=== PATIENT | female | born 1945 | race Caucasian/White ===

== ENCOUNTER 2016-10-01 06:08 | Observation (INO) | payer OTHER ==
[2016-10-01] MEDS ORDERED: DILTIAZEM HCL 25 MG/ 5ML VIAL ONE (06:35)
[2016-10-01] MEDS ORDERED: 0.9 % SODIUM CHLORIDE 1,000 ML IV ONE (06:38)
[2016-10-01] MEDS ORDERED: DILTIAZEM HCL 125 MG/25ML VIAL ONE (06:50)
[2016-10-01] MEDS ORDERED: 0.9 % SODIUM CHLORIDE 100 ML IV ONE (06:50)
[2016-10-01] MEDS ORDERED: DILTIAZEM HCL 25 MG/ 5ML VIAL IVP ONE (06:52)
[2016-10-01] MEDS ORDERED: DILTIAZEM HCL 125 MG in 0.9 % SODIUM CHLORIDE 100 ML IV STA ×2 (06:52→09:40)
[2016-10-01] MEDS ORDERED: 0.9 % SODIUM CHLORIDE 1,000 ML IV SCH ×2 (07:00)
[2016-10-01 07:22] LABS: BASOPHILS % 0.3 (0.0-1.5); EOSINOPHILS % 4.8 % (0.0-6.8); LYMPHOCYTES # 0.7 # k/uL (0.6-4.0); MEAN CORPUSCULAR HEMOGLOBIN 29.2 pg (28.0-34.0); MONOCYTES # 0.4 # k/uL (0.0-0.9); NEUTROPHILS # 3.1 # k/uL (1.4-7.7)
[2016-10-01 07:39] LABS: eGFR (African) > 60; eGFR (Non-African) > 60
--- NOTE | 2016-10-01 07:58 | Diagnostic Imaging Report ---
[facility] [address] [facility] [address] 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 Physician: JC LEDESMA Chest, AP portable History: Supra ventricular tachycardia Findings: There is no pleural effusion or pneumothorax. There is mild pulmonary vascular congestion. The heart is enlarged. Since 12 August 2016, little change has occurred. Impression: Cardiomegaly and pulmonary vascular congestion. Electronically signed on Oct 01, 2016 7:28:32 AM WEIGHT TRAINING INSTRUCTOR by: Mauricio DRUMMOND
--- NOTE | 2016-10-01 08:47 | ED Physician Documentation ---
General Adult - HISTORIAN Historian: patient - HPI Stated Complaint: Rapid HR Chief Complaint: General Adult Additional Information: pt. has been having rapid heart rate, chest pressure and soa since last night Onset: hours (10) Timing: still present Severity: moderate Modifying Factors: extra metoprolol not working Context: spontaneous Quality: like previous times Location: mid chest Further Comments: no Last known Well Date: 09/30/16 Last Known Well Time: 21:00 Last known Well Code/Unknown Code: Unknown - ROS CONST: weakness EYES/ENT: none CVS/RESP: chest pain (pressure), shortness of breath GI/: none MS/SKIN/LYMPH: none NEURO/PSYCH: dizziness - PAST HX Past History: hypertension, other (gerd, low back pain, anxiety) Other History: other (SVT) Surgeries/Procedures: cholecystectomy, other (low back surgery, hernia repair) Allergies/Adverse Reactions: Allergies Allergy/AdvReac Type Severity Reaction Status Date / Time acetaminophen [From [place]] Allergy Verified 10/01/16 07:30 hydrocodone bitartrate Allergy Verified 10/01/16 07:30 [From [place]] Home Medications: Ambulatory Orders Medication Instructions Recorded Aspirin [Brenda] 81 mg PO QD 09/14/12 Melatonin 5 mg PO HS PRN 10/01/16 Zolpidem Tartrate [Edluar] 5 mg PO PRN PRN 10/01/16 - SOCIAL HX Smoking History: non-smoker Alcohol Use: none Drug Use: none - FAMILY HX Family History: No - VITAL SIGNS Vital Signs: Vital Signs Temp Pulse Resp BP Pulse Ox 97.8 F 166 H 20 104/72 95 10/01/16 06:15 10/01/16 06:15 10/01/16 06:15 10/01/16 06:15 10/01/16 06:15 - REVIEWED ASSESSMENTS Nursing Assessment Reviewed: Yes Vitals Reviewed: Yes Progress - Results/Orders Results/Orders: cbc, cmp, pt/ptt/inr, trop, bnp, ekg, cxr ordered - Progress Progress: converted to sinus rhythm rate of 70 with 20 mg Cardizem bolus followed by drip at 5 mg/hr Critical Care Note - Critical Care Note Total Time (mins): 30 Comments: Pt. unstable on presentation with hypotension and tachycardic rate of 170, Pt. stabilzed with IV, Cardizem bolus and drip. ED Results Lab/Radiology - Lab Results Lab Results: Lab Results 10/01/16 10/01/16 10/01/16 07:00 07:00 07:00 WBC RBC Hgb Hct MCV MCH MCHC RDW Plt Count Neut % (Auto) Lymph % (Auto) Armstrong % (Auto) Eos % (Auto) Baso % (Auto) Neut # Lymph # Armstrong # Eos # Baso # Reactive Lymphs % Reactive Lymphs # PT 10.2 Seconds Seconds (9.7-11.5) INR 1.0 (0.9-1.1) APTT 25.0 Seconds Seconds (24.5-32.8) Sodium 141 mmol/L mmol/L (136-145) Potassium 4.3 mmol/L mmol/L (3.5-5.0) Chloride 101 mmol/L mmol/L (98-110) Carbon Dioxide 26 mmol/L mmol/L (20-32) BUN 24 mg/dL mg/dL (10-26) Creatinine 1.1 mg/dL mg/dL (0.4-1.5) Estimated Creat Clear 86 Est GFR ( Amer) > 60 (60 - ) Est GFR (Non-Af Amer) > 60 (60 - ) Glucose 148 mg/dL H mg/dL (70-99) Calcium 9.4 mg/dL mg/dL (8.5-10.5) Total Bilirubin 0.2 mg/dL mg/dL (0.2-1.2) AST 24 U/L U/L (0-41) ALT 13 U/L U/L (0-45) Alkaline Phosphatase 68 U/L U/L (46-116) Troponin I < 0.03 ng/mL L ng/mL (0.03-0.06) NT-Pro-B Natriuret Pep 761.7 pg/mL H pg/mL (15.0-125.0) Total Protein 7.2 g/dL g/dL (6.0-8.5) Albumin 3.8 g/dL g/dL (3.0-5.5) 10/01/16 07:00 WBC 4.60 K/ul K/ul (4.00-12.00) RBC 4.31 M/ul M/ul (3.90-5.20) Hgb 12.6 g/dL g/dL (12.0-16.0) Hct 39.7 % % (34.5-46.5) MCV 92.1 fl fl (80.0-100.0) MCH 29.2 pg pg (28.0-34.0) MCHC 31.7 g/dL g/dL (30.0-36.0) RDW 12.7 % % (11.3-14.3) Plt Count 165 K/mm3 K/mm3 (130-400) Neut % (Auto) 67.5 % % (39.0-79.0) Lymph % (Auto) 16.3 % % (16.0-50.0) Armstrong % (Auto) 8.0 % % (0.0-11.0) Eos % (Auto) 4.8 % % (0.0-6.8) Baso % (Auto) 0.3 (0.0-1.5) Neut # 3.1 # k/uL # k/uL (1.4-7.7) Lymph # 0.7 # k/uL # k/uL (0.6-4.0) Armstrong # 0.4 # k/uL # k/uL (0.0-0.9) Eos # 0.2 # k/uL # k/uL (0.0-0.6) Baso # 0.0 # k/uL # k/uL (0.0-0.5) Reactive Lymphs % 3.0 % % (0.0-5.0) Reactive Lymphs # 0.1 # k/uL # k/uL (0.0-0.8) PT INR APTT Sodium Potassium Chloride Carbon Dioxide BUN Creatinine Estimated Creat Clear Est GFR ( Amer) Est GFR (Non-Af Amer) Glucose Calcium Total Bilirubin AST ALT Alkaline Phosphatase Troponin I NT-Pro-B Natriuret Pep Total Protein Albumin - Radiology Radiology Impressions: cxr neg - Orders Orders: ED Orders Category Date Time Status Place Saline Lock/IV Now Care 10/01/16 06:[address] Saline Lock/IV Now Care 10/01/16 07:03 Active CHEST 1 VIEW [RAD] Routine Exams 10/01/16 Completed CBC/PLATELET/DIFF Routine Lab 10/01/16 07:00 Completed CMP Routine Lab 10/01/16 07:00 Completed NT-proBNP Routine Lab 10/01/16 07:00 Completed PT-INR Routine Lab 10/01/16 07:00 Completed PTT Routine Lab 10/01/16 07:00 Completed TROPONIN I (cTnI) Routine Lab 10/01/16 07:00 Completed URINALYSIS Routine Lab 10/01/16 06:55 Ordered 0.9 % Sodium Chloride [Normal Saline] 1,000 ml Med 10/01/16 07:00 Ordered IV .Q1H 0.9 % Sodium Chloride [Normal Saline] 1,000 ml Med 10/01/16 06:38 Discontinued IV .STK-MED 0.9 % Sodium Chloride [Normal Saline] 1,000 ml Med 10/01/16 07:00 Discontinued IV Q10H 0.9 % Sodium Chloride [Sodium Chloride] 100 ml Med 10/01/16 06:50 Discontinued IV .STK-MED Diltiazem HCl [Cardizem] Med 10/01/16 06:50 Discontinued 125 mg .ROUTE .STK-MED ONE Diltiazem HCl [Cardizem] Med 10/01/16 06:52 Discontinued 20 mg IVP STAT ONE Diltiazem HCl [Cardizem] Med 10/01/16 06:35 Discontinued 25 mg .ROUTE .STK-MED ONE Diltiazem HCl [Cardizem] 125 mg Med 10/01/16 06:52 Active 0.9 % Sodium Chloride [Sodium Chloride] 100 ml IV 1T EKG WITH COMPARISON Routine Ther 10/01/16 Ordered EKG WITH COMPARISON Routine Ther 10/01/16 Ordered Transfer Routine Transfer 10/01/16 Ordered General Adult Physical Exam - PHYSICAL EXAM GENERAL APPEARANCE: moderate distress EENT: eye inspection normal, ENT inspection normal, pharynx normal, no signs of dehydration, LEV, no nystagmus, TM's nml NECK: normal inspection, thyroid normal, supple RESPIRATORY: no resp distress, chest non-tender, breath sounds normal CVS: reg rate & rhythm, tachycardia ABDOMEN: soft, no organomegaly, normal bowel sounds, no abdominal bruit, no distension, non-tender BACK: normal inspection, no CVA tenderness SKIN: warm/dry, normal color EXTREMITIES: non-tender, normal range of motion, no evidence of injury, edema ( x2 le's, mild) NEURO: oriented X3, CN's nml as tested, motor nml, sensation nml, mood/affect nml Discharge Clincal Impression: Supraventricular tachycardia Home Medications: Ambulatory Orders Aspirin [Brenda] 81 mg PO QD 09/14/12 Melatonin 5 mg PO HS PRN 10/01/16 Zolpidem Tartrate [Edluar] 5 mg PO PRN PRN 10/01/16 Comments: case discussed with Dr. Scott, pt. admitted Condition: Stable Disposition: ADMITTED INPATIENT Decision to Admit: [id number] Decision Time: 08:15
[2016-10-01] MEDS: 0.9 % SODIUM CHLORIDE 1,000 ML IV SCH ×2 (08:50→18:29)
[2016-10-01] MEDS ORDERED: ZOLPIDEM TARTRATE 5 MG TABLET PO PRN (09:40)
[2016-10-01] MEDS ORDERED: HYDROCHLOROTHIAZIDE 25 MG TABLET PO SCH (09:40)
[2016-10-01] MEDS ORDERED: LISINOPRIL 20 MG TABLET PO SCH (09:40)
[2016-10-01 10:28] VITALS: BMI 35.6
[2016-10-01] MEDS: traMADol HCL 50 MG TABLET PO PRN ×2 (12:01→20:26)
[2016-10-01] MEDS ORDERED: ASPIRIN EC 81 MG TABLET.DR ONE (13:04)
[2016-10-01] MEDS ORDERED: ENOXAPARIN SODIUM 30 MG/0.3 ML DISP.SYRIN SQ ONE (13:04)
[2016-10-01] MEDS ORDERED: DILTIAZEM HCL 180 MG CAP.ER.24H PO ONE (13:04)
[2016-10-01] MEDS ORDERED: HYDROCHLOROTHIAZIDE 25 MG TABLET PO ONE ×2 (13:04→18:00)
[2016-10-01] MEDS: ASPIRIN 81 MG CHEW TAB PO SCH (13:49)
[2016-10-01] MEDS: ENOXAPARIN SODIUM 30 MG/0.3 ML DISP.SYRIN SQ SCH (13:49)
[2016-10-01] MEDS: DILTIAZEM HCL 180 MG CAP.ER.24H PO SCH (15:10)
[2016-10-01] MEDS ORDERED: LISINOPRIL 20 MG TABLET ONE (17:55)
[2016-10-01] MEDS ORDERED: LISINOPRIL 20 MG TABLET PO ONE (18:00)
[2016-10-01] MEDS ORDERED: PANTOPRAZOLE SODIUM 40 MG TABLET ONE (19:43)
[2016-10-01] MEDS ORDERED: NAPROXEN 250 MG TABLET ONE (22:25)
[2016-10-01] MEDS ORDERED: NAPROXEN 250 MG TABLET PO PRN (22:26)
[2016-10-02 04:52] VITALS: BP 137/63
[2016-10-02] MEDS ORDERED: SALINE FLUSH 10 ML DISP.SYRIN IVF ONE (06:17)
[2016-10-02] MEDS ORDERED: PANTOPRAZOLE SODIUM 40 MG TABLET PO SCH (07:00)
--- NOTE | 2016-10-02 07:07 | Diagnostic Imaging Report ---
[facility] [address] [facility] 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 COMPARISON: Chest x-rays dated 10/01/2016 and 08/12/2016. TECHNIQUE: 2 views of the chest were performed. FINDINGS: There is improvement in the central pulmonary vascular congestion. ~ No pneumothorax or new infiltrates. ~There is a calcified granuloma in the right lung base. ~There are right hilar calcified granulomas. ~The heart is borderline enlarged. IMPRESSION: Improved central pulmonary vascular congestion. No new pulmonary infiltrates. ~ Electronically signed on Oct 02, 2016 6:52:32 AM FLEXO FOLDER GLUER OPERATOR by: Brodie DRUMMOND
[2016-10-02] MEDS: 0.9 % SODIUM CHLORIDE 1,000 ML IV SCH (07:34)
[2016-10-02] MEDS: ASPIRIN 81 MG CHEW TAB PO SCH (10:02)
[2016-10-02] MEDS: DILTIAZEM HCL 180 MG CAP.ER.24H PO SCH (10:02)
[2016-10-02] MEDS: ENOXAPARIN SODIUM 30 MG/0.3 ML DISP.SYRIN SQ SCH (10:03)
--- NOTE | 2016-11-27 09:51 | Discharge Summary ---
Discharge Summary - Discharge Sumary History of Present Illness: 71-year-old white female with a history of supraventricular tachycardia. Patient states that she woke up last night complaining of rapid heart rate. Patient was having some mild chest discomfort associated with it. Patient was subsequently seen in the ED. Patient was noted to have a heart rate of 160s to 170s. There was a narrow complex regular rhythm. Patient was felt to be an SVT again. Patient was given a bolus of Cardizem 20 mg daily. Patient did convert to normal sinus rhythm and was maintained on 5 mg Cardizem drip. Patient was subsequently admitted to the hospital for further care and evaluation. Home Medications: Ambulatory Orders Medication Instructions Recorded Aspirin [Brenda] 81 mg PO QD 09/14/12 Melatonin 5 mg PO HS PRN 10/01/16 Zolpidem Tartrate [Edluar] 5 mg PO PRN PRN 10/01/16 Diltiazem HCl [Cardizem CD] 180 mg PO DAILY #30 cap.er.24h 10/02/16 traMADol HCL [Ultram] 50 mg PO TID PRN #0 tablet 10/02/16 Allergies/Adverse Reactions: Allergies Allergy/AdvReac Type Severity Reaction Status Date / Time acetaminophen [From [place]] Allergy Verified 10/01/16 07:30 hydrocodone bitartrate Allergy Verified 10/01/16 07:30 [From [place]] Discharge Summary: Patient was continued on a Cardizem drip. Patient was then converted to by mouth Cardizem. 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 Patient still cardiac enzymes and EKGs done which were negative. Patient did not have any further episodes of tachycardia. Patient was discharged from in stable condition. - Final Diagnosis (1) Supraventricular tachycardia Problems: Patient will be continued on home medications. Patient will follow up with manager chemistry. If she has any further problems was advised to return to clinic or to the ED.
== END 2016-10-02 10:15 | disposition home or self-care (01) ==
LOC: ED 06:08 → SOUTH 08:40
PROVIDERS: ADMIT Family Medicine; ATTEND Family Medicine
DX: I47.1 Supraventricular tachycardia (principal)
CPT/HCPCS: 36415; 71010; 71020; 80053; 83880; 84484; 85025; 85610; 85730; 93005; G0378; J1650; J3490; J7030; 96365; 96367; 96375; 99283; 99284; S1016

== ENCOUNTER 2016-11-05 09:20 | Outpatient (CLI) | payer OTHER | END 2016-11-05 09:21 | LOC: CARD 09:20 | PROVIDERS: ATTEND Internal Medicine Cardiovascular Disease | DX: I47.1 Supraventricular tachycardia (principal); R00.2 Palpitations | CPT/HCPCS: G0463 ==

== ENCOUNTER 2017-01-16 15:41 | Emergency (ER) | payer OTHER ==
[~2017-01-16 15:41] MED LIST: 0.9 % SODIUM CHLORIDE 1,000 ML IV SCH
[2017-01-16] MEDS ORDERED: NORMAL SALINE 500 ML IV.SOLN IV ONE (16:07)
[2017-01-16] MEDS: DIPH,PERTUSS(ACELL),TET VAC/PF 0.5 ML DISP.SYRIN IM ONE (16:09)
--- NOTE | 2017-01-16 16:15 | ED Physician Documentation ---
Fall - HISTORIAN Historian: patient, child (daughter) - HPI Stated Complaint: fall/laceration Chief Complaint: Fall Additional Information: Unfolding a lawn chair on sloping gravel. Landed on butt, per daughter, then fell onto back and hit back of head. No LOC. Was dazed. Couldn't remember what she was doing when she fell, at first. Now recalls unfolding chair. To ER per EMS. Family would not let her get off ground at scene. Head hurts as well as mid back soreness. Left shoulder hurts a little when she moves it. Onset: just prior to arrival (at about 1500) Where: home - ROS CONST: no problems - PAST HX Past History: other (hypertension. DVT RLE 1999 - on daily asa) Allergies/Adverse Reactions: Allergies Allergy/AdvReac Type Severity Reaction Status Date / Time acetaminophen [From [place]] Allergy Verified 10/01/16 07:30 hydrocodone bitartrate Allergy Verified 10/01/16 07:30 [From [place]] Home Medications: Ambulatory Orders Medication Instructions Recorded Aspirin [Brenda] 81 mg PO QD 09/14/12 Melatonin 5 mg PO HS PRN 10/01/16 Zolpidem Tartrate [Edluar] 5 mg PO PRN PRN 10/01/16 Diltiazem HCl [Cardizem CD] 180 mg PO DAILY #30 cap.er.24h 10/02/16 traMADol HCL [Ultram] 50 mg PO TID PRN #0 tablet 10/02/16 - SOCIAL HX Smoking History: non-smoker - FAMILY HX Family History: no significant history - VITAL SIGNS Vital Signs: Vital Signs Temp Pulse Resp BP Pulse Ox 98.4 F 77 18 145/61 98 01/16/17 16:01 01/16/17 16:01 01/16/17 16:01 01/16/17 16:01 01/16/17 16:01 - REVIEWED ASSESSMENTS Nursing Assessment Reviewed: Yes Vitals Reviewed: Yes Progress - Progress Progress: CT cervical spine Date of examination: 16 Jan 2017 CLINICAL HISTORY: FALL, HEADACHE, LACERATION ON BACK OF HEAD, MEMORY LOSS. PT DOES NOT REMEMBER INCIDENT. (Hx) / FALL (DICOM Hx) TECHNIQUE: 2.5 mm contiguous axial images of the cervical spine with sagittal and coronal reconstructions. FINDINGS: The cervical spine alignment is normal. There is disc space narrowing at C5/C6. Facet osteoarthritis is present through the cervical spine. There is no fracture or lytic change. A levoscoliosis curve is present. Minimal carotid artery calcification is present in the neck. The ring of C1 and C 2 appear intact. IMPRESSION: No evidence of acute cervical spine fracture or subluxation Cervical spondylosis Electronically signed on January 16, 2017 4:30:28 PM CDT by: Darvin Bhardwaj CT brain noncontrast Date of study: 16 Jan 2017 CLINICAL HISTORY: FALL, HEADACHE, LACERATION ON BACK OF HEAD, MEMORY LOSS. PT DOES NOT REMEMBER INCIDENT. (Hx) / FALL (DICOM Hx) TECHNIQUE: 5 mm contiguous axial images of the brain, noncontrast. FINDINGS: There is no evidence of intracranial mass effect, hemorrhage, or acute hydrocephalus. The lateral ventricles are symmetrical and the 4th ventricle is midline without shift. No acute brain parenchymal changes or extra-axial fluid collections are identified. The posterior fossa contents are within normal limits. The calvarium is intact. The visualized sinuses and mastoid air cells are clear. IMPRESSION: No acute intracranial process. Electronically signed on January 16, 2017 4:31:22 PM CDT by: Darvin Bhardwaj ED Results Lab/Radiology - Orders Orders: ED Orders Category Date Time Status CT BRAIN W/O CONTRAST Stat Exams 01/16/[address] NECK WITHOUT [CT C-SPINE W/O CONTRAST] Stat Exams 01/16/17 Ordered 0.9 % Sodium Chloride [Normal Saline] Med 01/16/17 16:07 Once 1,000 ml IV 1T ONE Diph,Pertuss(Acell),Tet Vac/Pf [Adacel] Med 01/16/17 15:59 Discontinued 0.5 ml IM .ONCE ONE Fall Physical Exam - Physical Exam General Appearance: alert, moderate distress (anxious) Neck: non-tender, trachea midline Eye: LEV, EOMI, lids & conjunct. nml ENT: nml external inspection, no oral injury, airway nml Resp/CVS: chest non-tender, breath sounds nml, heart sounds nml Abdomen: soft, normal bowel sounds, other (pelvis stable, non-tender) Neuro: CN's nml as tested, sensation nml, motor nml, reflexes nml Skin: color nml Back: normal inspection, other (tender to palpation right paraspinal thoracic area) Extremities: pelvis stable, no pedal edema (left foot and ankle; right foot and ankle with non-pitting edema) Joint: joints nml - [place] Coma Score Eyes Open: Spontaneous Speech: Oriented Motor: Obeys Commands Discharge Clincal Impression: Fall Qualifiers: Encounter type: initial encounter Qualified Code(s): W19.XXXA - Unspecified fall, initial encounter Occipital scalp laceration Qualifiers: Encounter type: initial encounter Qualified Code(s): S01.01XA - Laceration without foreign body of scalp, initial encounter Referrals: Todd Scott MD [Primary Care Provider] - 2 Days Additional Instructions: Return to the ER immediately if you develop prolonged vomiting or unusual behavior. Home Medications: Ambulatory Orders Aspirin [Brenda] 81 mg PO QD 09/14/12 Melatonin 5 mg PO HS PRN 10/01/16 Zolpidem Tartrate [Edluar] 5 mg PO PRN PRN 10/01/16 Diltiazem HCl [Cardizem CD] 180 mg PO DAILY #30 cap.er.24h 10/02/16 traMADol HCL [Ultram] 50 mg PO TID PRN #0 tablet 10/02/16 Condition: Good Disposition: 01 HOME, SELF-CARE Decision to Admit: NO Decision Time: 16:45
[2017-01-16] MEDS ORDERED: ONDANSETRON HCL/PF 4 MG/ 2ML VIAL ONE (16:23)
[2017-01-16] MEDS: ONDANSETRON HCL/PF 4 MG/ 2ML VIAL IVP ONE (16:28)
[2017-01-16] MEDS: KETOROLAC TROMETHAMINE 30 MG/1ML VIAL IVP ONE (16:45)
--- NOTE | 2017-01-16 16:49 | Diagnostic Imaging Report ---
[facility] [address] [facility] [address] [place], [place]. [address] Report Submission Date: January 16, 2017 4:30:28 PM CDT Patient Study Name: YONG DUMONT Date: January 16, 2017 4:12:15 PM CDT Modality Type: CT\SR Gender: F Description: CT C-SPINE W/O CONTRAS : 45 Institution: [facility] Physician: FRANCINE MIKE - ER CT cervical spine Date of examination: 16 Jan 2017 CLINICAL HISTORY: FALL, HEADACHE, LACERATION ON BACK OF HEAD, MEMORY LOSS. PT DOES NOT REMEMBER INCIDENT. (Hx) / FALL (DICOM Hx) TECHNIQUE: 2.5 mm contiguous axial images of the cervical spine with sagittal and coronal reconstructions. FINDINGS: The cervical spine alignment is normal. There is disc space narrowing at C5/C6. Facet osteoarthritis is present through the cervical spine. There is no fracture or lytic change. A levoscoliosis curve is present. Minimal carotid artery calcification is present in the neck. The ring of C1 and C 2 appear intact. IMPRESSION: No evidence of acute cervical spine fracture or subluxation Cervical spondylosis Electronically signed on January 16, 2017 4:30:28 PM CDT by: Darvin DRUMMOND
--- NOTE | 2017-01-16 16:50 | Diagnostic Imaging Report ---
[facility] [address] [facility] [address] [place], [place]. [address] Report Submission Date: January 16, 2017 4:31:22 PM CDT Patient Study Name: YONG DUMONT Date: January 16, 2017 4:09:46 PM CDT Modality Type: CT\SR Gender: F Description: CT BRAIN W/O CONTRAST : 45 Institution: [facility] Physician: FRANCINE MIKE - ER CT brain noncontrast Date of study: 16 Jan 2017 CLINICAL HISTORY: FALL, HEADACHE, LACERATION ON BACK OF HEAD, MEMORY LOSS. PT DOES NOT REMEMBER INCIDENT. (Hx) / FALL (DICOM Hx) TECHNIQUE: 5 mm contiguous axial images of the brain, noncontrast. FINDINGS: There is no evidence of intracranial mass effect, hemorrhage, or acute hydrocephalus. The lateral ventricles are symmetrical and the 4th ventricle is midline without shift. No acute brain parenchymal changes or extra-axial fluid collections are identified. The posterior fossa contents are within normal limits. The calvarium is intact. The visualized sinuses and mastoid air cells are clear. IMPRESSION: No acute intracranial process. Electronically signed on January 16, 2017 4:31:22 PM CDT by: Darvin DRUMMOND
[2017-01-16 17:23] VITALS: BP 130/61
== END 2017-01-16 16:54 | disposition home or self-care (01) ==
LOC: ED 15:41
DX: S01.01XA Laceration without foreign body of scalp, initial encounter (principal); W19.XXXA Unspecified fall, initial encounter; Y93.9 Activity, unspecified; Y99.9 Unspecified external cause status
CPT/HCPCS: 70450; 72125; 90715; J1885; J2405; 90471; 99283

== ENCOUNTER 2017-02-10 08:51 | Outpatient (CLI) | payer OTHER | END 2017-02-10 08:52 | LOC: LAB 08:51 | PROVIDERS: ATTEND Family Medicine | DX: Z11.59 Encounter for screening for other viral diseases (principal) | CPT/HCPCS: 36415; 86803 ==

== ENCOUNTER 2017-03-18 14:03 | Outpatient (CLI) | payer OTHER | END 2017-03-18 14:04 | LOC: POD 14:03 | PROVIDERS: ATTEND Podiatrist | DX: M20.12 Hallux valgus (acquired), left foot (principal); L60.0 Ingrowing nail | CPT/HCPCS: G0463 ==

== ENCOUNTER 2017-03-21 10:30 | Outpatient (CLI) | payer OTHER ==
--- NOTE | 2017-03-21 14:27 | Diagnostic Imaging Report ---
OSMIN HOYT [facility] [address] [facility] [address] [address] Report Submission Date: Mar 21, 2017 10:58:57 AM CDT Patient Study Name: YONG DUMONT Date: Mar 21, 2017 10:37:34 AM CDT Modality Type: CR Gender: F Description: LOWER EXTREMITY : 45 Institution: [facility] Physician: OSMIN HOYT Examination: Plain film foot History: Foot numbness Findings: 3 views of the foot demonstrates normal cortical margins. Generalized osteopenia. No fracture or dislocation. Calcaneal spurs. 1st digit hallux valgus deformity. No soft tissue swelling. No joint effusion. Impression: Osteopenia, degenerative changes, and 1st digit hallux valgus deformity. Calcaneal spurs. No evidence for fracture Electronically signed on Mar 21, 2017 10:58:57 AM CDT by: Sebastian DRUMMOND
== END 2017-03-21 10:32 ==
LOC: RAD 10:30
PROVIDERS: ATTEND Podiatrist
DX: M20.12 Hallux valgus (acquired), left foot (principal); L60.0 Ingrowing nail
CPT/HCPCS: 73630

== ENCOUNTER 2017-04-15 13:25 | Outpatient (CLI) | payer OTHER | END 2017-04-15 13:35 | LOC: POD 13:25 | PROVIDERS: ATTEND Podiatrist | DX: M20.12 Hallux valgus (acquired), left foot (principal) | CPT/HCPCS: G0463 ==

== ENCOUNTER 2017-07-11 08:08 | Day surgery (SDC) | payer OTHER ==
[~2017-07-11 08:08] MED LIST changes: -0.9 % SODIUM CHLORIDE 1,000 ML IV SCH; +LACTATED RINGERS 1,000 ML IV.SOLN IV ONE; +LIDOCAINE HCL/PF 2% 100 MG/5 ML VIAL IJ ONE; +PROPOFOL 200 MG/20 ML VIAL IV ONE; +SALINE FLUSH 10 ML DISP.SYRIN IVF ONE
--- NOTE | 2017-07-11 14:28 | GI Report ---
REFERRING PHYSICIAN: Dr. Todd Scott ANIMAL NUTRITIONIST: Aldo Lin MD PROCEDURE MEDICATION: Propofol as per anesthesia. INDICATIONS: Patient is here for surveillance colonoscopy. She has had adenomatous polyps in the past. She denies any interval changes in her stools. She is on medicine for hypertension. She has had abdominal surgery with a large ventral hernia that has mesh in it, an apparent traumatic hernia, and also she has had a cholecystectomy and surgery for her back going through the abdomen. She does have central obesity. PROCEDURE PERFORMED: Colonoscopy with polypectomy. PROCEDURE: An Olympus video colonoscope was advanced into the rectum and slowly advanced to the cecum. In the ascending colon, the patient had a 3 mm flat polyp removed with a cold snare. In the transverse colon, you could kind of see an area of some scarring where the colon possibly was in the hernia and near that, the patient had a 3 mm polyp removed with a cold snare at about 70 cm. On withdrawal, there was still some bleeding from the polypectomy site, so a hemoclip was placed, which is MRI compatible. The main part of descending colon with a lot of redundancy. No additional lesions noted. Retroflexion of the rectum was normal. Patient tolerated the procedure well. FINDINGS: Two polyps removed, 1 in the ascending colon and 1 in the transverse colon. Because of persistent bleeding, a hemoclip was placed on the one in the transverse colon. RECOMMENDATIONS: 1. Pending the pathology of the polyp, she needs her colon re-looked again within 5 years 2. senior living, would increase fiber in the diet. 3. Follow up with Dr. Scott. cc: Dr. Todd DRUMMOND
== END 2017-07-11 08:09 ==
LOC: OPSURG 08:08
PROVIDERS: ATTEND Internal Medicine Gastroenterology
DX: Z12.11 Encounter for screening for malignant neoplasm of colon (principal); D12.2 Benign neoplasm of ascending colon; D12.3 Benign neoplasm of transverse colon
CPT/HCPCS: 88305; J2001; J2704; J7120; 45385; S1016

== ENCOUNTER 2017-11-30 10:55 | Outpatient (CLI) | payer OTHER ==
[2017-11-30 11:48] LABS: eGFR (African) > 60; eGFR (Non-African) > 60
== END 2017-11-30 10:56 ==
LOC: RAD 10:55
PROVIDERS: ATTEND Family Medicine
DX: I10 Essential (primary) hypertension (principal); M81.0 Age-related osteoporosis without current pathological fracture
CPT/HCPCS: 36415; 77080; 80053; 80061

== ENCOUNTER 2019-01-15 13:37 | Emergency (ER) | payer OTHER ==
[2019-01-15] MEDS ORDERED: ASPIRIN 81 MG CHEW TAB PO ONE (13:40)
--- NOTE | 2019-01-15 13:48 | ED Physician Documentation ---
General Adult - HISTORIAN Historian: patient - HPI Stated Complaint: tachycardia Chief Complaint: Palpitations Onset: hours (6) Timing: still present Severity: moderate Further Comments: yes (She reports she has a history of heart racing or beating funny. She reports this started about 6 am "when it went off" (discussion on this meaning and she felt her heart beat funny) She reports she knows what to try at home and she has tried all those things (bearing down, massage, and some PRN metoprolol (date on bottle was 2016). She states she took 3 doses of the metoprolol. She has no resolution. She has had this happen a few times and she has not had an appt to discuss with her PCP. She had some chest tightness when this first started and it ran up her neck midline. Denies any pain or tightness now. She has no other complaints.) Last known Well Code/Unknown Code: Unknown - ROS CONST: no problems EYES/ENT: denies: sore throat CVS/RESP: denies: shortness of breath, cough MS/SKIN/LYMPH: none NEURO/PSYCH: denies: headache - PAST HX Past History: hypertension Allergies/Adverse Reactions: Allergies Allergy/AdvReac Type Severity Reaction Status Date / Time acetaminophen [From [place]] Allergy Verified 01/15/19 14:20 hydrocodone bitartrate Allergy Verified 01/15/19 14:20 [From [facility]] Home Medications: Ambulatory Orders Medication Instructions Recorded Aspirin [Brenda] 81 mg PO QD 09/14/12 Zolpidem Tartrate [Edluar] 5 mg PO PRN PRN 10/01/16 dilTIAZem HCL [Cardizem CD] 180 mg PO DAILY #30 cap.er.24h 10/02/16 traMADol HCL [Ultram] 50 mg PO TID PRN #0 tablet 10/02/16 Ascorbic Acid [Vitamin C with Heidi 500 mg PO QDAY 01/15/19 Hips] Calcium Carb 600Mg/Vit D-3 400 1 each PO DAILY 01/15/19 [Caltrate with Vit D-3] Multivit-Min/Iron/Vitamin K [Adult 1 each PO QDAY 01/15/19 Multivitamin-Iron Tablet] - SOCIAL HX Smoking History: non-smoker Alcohol Use: none Drug Use: none - FAMILY HX Family History: No - VITAL SIGNS Vital Signs: Vital Signs Temp Pulse Resp BP Pulse Ox 130/61 01/16/17 16:54 - REVIEWED ASSESSMENTS Nursing Assessment Reviewed: Yes Vitals Reviewed: Yes Progress - Progress Progress: 1345: while attaching monitor leads heart rate slowed to 90. She has no current pain or pressure DG 1420: discussed results and she denies any pain, or pressure at this time she is agreeable to the plan DG ED Results Lab/Radiology - Orders Orders: ED Orders Category Date Time Status Continuous EKG monitoring Q1H Care 01/15/19 13:39 Ordered IV Started NOW Care 01/15/19 13:39 Ordered CHEST 1VIEW [RAD] Stat Exams 01/15/19 Ordered CBC/PLATELET/DIFF Stat Lab 01/15/19 13:39 Ordered CMP Stat Lab 01/15/19 13:39 Ordered TROPONIN I Stat Lab 01/15/19 Ordered Aspirin [Brenda] Med 01/15/19 13:40 Once 324 mg PO NOW ONE EKG WITH COMPARISON Stat Ther 01/15/19 Ordered General Adult Physical Exam - PHYSICAL EXAM GENERAL APPEARANCE: no distress EENT: eye inspection normal, ENT inspection normal, pharynx normal, no signs of dehydration NECK: normal inspection RESPIRATORY: no resp distress, chest non-tender, breath sounds normal CVS: heart sounds normal, tachycardia ABDOMEN: soft, normal bowel sounds, no distension SKIN: warm/dry, normal color EXTREMITIES: non-tender, normal range of motion, no edema NEURO: oriented X3, CN's nml as tested Discharge Clincal Impression: SVT (supraventricular tachycardia) Referrals: Todd Scott MD [Primary Care Provider] - 2 Days Comments: 1. follow up with your PCP today - call about increasing episodes of palpitations 2. Return to ER for any increasing concerns Condition: Stable Disposition: 01 HOME, SELF-CARE Decision to Admit: NO Date of Decison to Admit: 01/15/19 Decision Time: 14:31
[2019-01-15 14:01] LABS: BASOPHILS % 0.3 % (0.0-1.5); EOSINOPHILS % 3.5 % (0.0-6.8); MEAN CORPUSCULAR HEMOGLOBIN 29.7 pg (28.0-34.0); MONOCYTES % 5.5 % (0.0-11.0); NEUTROPHILS # 7.1 # k/uL (1.4-7.7)
[2019-01-15 14:30] LABS: APPEARANCE,URINE CLEAR (CLEAR); COLOR,URINE YELLOW (YELLOW); OCCULT BLOOD,URINE NEGATIVE (NEGATIVE); PH URINE 5.5 (5.0 - 8.0); UROBILINOGEN URINE 0.2 Eu (0.2-1.0)
[2019-01-15 14:33] LABS: eGFR (Non-African) 43
--- NOTE | 2019-01-15 14:36 | Diagnostic Imaging Report ---
LUCI PAEZ [facility] [address] [facility] [address] [place], [place]. [address] Report Submission Date: January 15, 2019 2:31:40 PM CDT Patient Study Name: YONG DUMONT Date: January 15, 2019 1:57:16 PM CDT Modality Type: DX Gender: F Description: CHEST 1VIEW : 45 Institution: [facility] Physician: LUCI PAEZ CHEST 1VIEW HISTORY: TACHYCARDIA, CHEST PAIN TODAY. FINDINGS: Erect AP portable chest x-ray dated January 15, 2019 at 1357 demonstrates lungs to be clear of focal infiltrates and expanded bilaterally. Calcified granulomas in the right lower lobe are seen. Cardiac silhouette and bony thorax are unremarkable except for multiple old healed rib fractures on the right. ECG leads overlie the chest obscuring detail. IMPRESSION: No active intrathoracic disease seen. Electronically signed on January 15, 2019 2:31:40 PM CDT by: Deonte DRUMMOND
[2019-01-15 14:43] VITALS: BP 106/54
== END 2019-01-15 14:39 | disposition home or self-care (01) ==
LOC: ED 13:37
DX: I47.1 Supraventricular tachycardia (principal)
CPT/HCPCS: 36415; 71045; 80053; 81002; 84484; 85025; 99283; 99284; S1016